=== PATIENT | male | born 1955 | race African-American/Black ===

== ENCOUNTER 2016-07-10 10:49 | Day surgery (SDC) | payer MEDICARE ==
[2016-07-07 08:33] LABS: HEMOGLOBIN 12.7 g/dL (13.6-17.8)
[2016-07-07 08:47] LABS: BUN (BLOOD UREA NITROGEN) 7 MG/DL (6-23); CALCIUM, SERUM 9.3 MG/DL (8.5-10.4); CHLORIDE, SERUM 104 MMOL/L (96-112); CO2 (CARBON DIOXIDE) 27 MMOL/L (24-34); CREATININE 0.72 MG/DL (0.70-1.30); GFR AFRICAN AMERICAN 117 ML/MIN (>=60); GFR NON AFRICAN AMERICAN 101 ML/MIN (>=60); GLUCOSE, SERUM 92 MG/DL (60-99); POTASSIUM, SERUM 3.9 MMOL/L (3.5-5.3); SODIUM, SERUM 140 MMOL/L (135-148)
--- NOTE | ~2016-07-10 | OP ---
Record Of Operation [facility] [address] [place]. [address] NAME: JUNIE MARTIN : 53 STATUS : REG [facility] [place]#: [id number] AGE: 60 ADM/REG DATE : 07/10/16 MR#: [id number] REPORT SERV DATE: 07/10/16 DICTATED BY: LAILA DAVIS DATE: 07/10/16 REPORT STATUS : Draft TRANSCRIBED BY: GAYLA DATE: 07/10/16 DATE OF PROCEDURE: 07/10/2016 PREOPERATIVE DIAGNOSES: Left partial thickness subscapularis tear, rotator cuff tendinosis, labral tearing and impingement. POSTOPERATIVE DIAGNOSES: Left partial thickness subscapularis tear, rotator cuff tendinosis, labral tearing and impingement. PROCEDURES: Left shoulder arthroscopy, subacromial decompression, rotator cuff debridement, and labral debridement. SURGEON: Laila Davis M.D. ANESTHESIA: General with regional block for postop pain control. COMPLICATIONS: None. ESTIMATED BLOOD LOSS: Minimal. INDICATIONS: Mr. Martin is a 60-year-old gentleman followed in my office with the above diagnosis given failure of conservative measures including therapy and injections and medications. He wished to proceed with surgery. Risks and benefits were discussed. DESCRIPTION OF PROCEDURE: The patient was identified in the preoperative area. Informed consent was performed and documented. Surgical site was signed. He was given a regional block per Anesthesia for postop pain control. Taken back to the operative suite, placed on table in supine position. General anesthesia was administered. Attention was turned to his left upper extremity, it was prepped draped in a normal sterile fashion. A time-out was performed and documented. Antibiotics were given at room time. Marked out the bone and landmarks. Insufflated the glenohumeral joint using normal saline. Then made a standard posterior portal 2 cm medial, 2 cm inferior to the posterolateral border of the acromion. Inserted the blunt trocar over the arthroscope, medially established a working portal in the front using the outside in technique. On inspection, the humeral head was essentially benign. There were some mild cartilaginous defects in the glenoid inferiorly. There was degenerative anterior, superior, and posterior labral tearing. This was debrided. Minimal tenderness about the biceps which was likewise debrided. Synovitis superiorly, which was debrided. The biceps and biceps anchor were stable. There was a partial thickness insertional tear in the subscapularis which was debrided back to healthy tissue. Had good integrity. No loose bodies inferiorly. The articular surface of the rotator cuff was benign. Biceps exit was benign. Repositioned the subacromial space, established a lateral working portal, performed a bursectomy, identified the anterior and lateral aspects of the acromion. Used a hi to perform acromioplasty about the anterior lip and then identified and isolated projections to downward at the AC joint. These were likewise debrided as well as the distal clavicle coplaning. Obtained the final images. Removed the instruments and closed the portals. Placed a sterile dressing and a simple sling. The patient tolerated Record Of Operation [place] [place] [id number] [facility] [place]. [address] NAME: JUNIE MARTIN : 53 STATUS : REG [facility] PAT#: [id number] AGE: 60 ADM/REG DATE : 07/10/16 MR#: [id number] REPORT SERV DATE: 07/10/16 DICTATED BY: LAILA DAVIS DATE: 07/10/16 REPORT STATUS : Draft TRANSCRIBED BY: GAYLA DATE: 07/10/16 the procedure well, was taken to the recovery in stable condition. DISCHARGE CONDITION: Satisfactory. DISCHARGE INSTRUCTIONS: The patient was given narcotic analgesics for pain, pertinent instruction for care of dressing, and details regarding his followup appointment. We will see him back in 10 to 14 days, at which time, we will remove the sutures, work on the range of motion. Monitor his progress. WILFRED/GAYLA Laila Davis M.D. / [id number] CC: Aracelis Pryor M.D.
[~2016-07-10 10:49] MED LIST: ACET500CAP PO; ADVIL PO; C5; CELEBREX2 PO; FLEX PO; MOBIC15 MG PO; NORCO1 TAB PO; NORV5 PO; PCET PO
[2016-12-19] MEDS ORDERED: NORV10 PO (23:21)
[2016-12-19] MEDS ORDERED: TYLENOL PM PO (23:22)
[2016-12-19] MEDS ORDERED: NORCO1 TAB PO (23:22)
== END 2016-07-10 20:37 | disposition home or self-care (01) ==
LOC: SDC 10:49
PROVIDERS: Surgery Surgery of the Hand
PROC: 0LB24ZZ Excision of Left Shoulder Tendon, Percutaneous Endoscopic Approach (ICD-10-PCS; principal; 2016-07-10 12:45)
PROC: 0RNK4ZZ Release Left Shoulder Joint, Percutaneous Endoscopic Approach (ICD-10-PCS; 2016-07-10 12:45)
DX: M75.112 Incomplete rotator cuff tear or rupture of left shoulder, not specified as traumatic (principal); M25.812 Other specified joint disorders, left shoulder; I10 Essential (primary) hypertension; F32.9 Major depressive disorder, single episode, unspecified; Z88.8 Allergy status to other drugs, medicaments and biological substances; Z87.891 Personal history of nicotine dependence; Z98.890 Other specified postprocedural states
CPT/HCPCS: 80048; 85014; 85018; 93005; J0690; J1170; J2250; J2370; J2405; J2710; J2795; J3010

== ENCOUNTER 2016-07-24 13:45 | Emergency (ER) | payer MEDICARE ==
[2016-12-19] MEDS ORDERED: NORV10 PO (23:21)
[2016-12-19] MEDS ORDERED: TYLENOL PM PO (23:22)
[2016-12-19] MEDS ORDERED: NORCO1 TAB PO (23:22)
== END 2016-07-24 18:30 | disposition short-term general hospital (02) ==
LOC: ER 13:45
DX: M50.221 Other cervical disc displacement at C4-C5 level (principal); M50.21 Other cervical disc displacement, high cervical region; M25.80 Other specified joint disorders, unspecified joint; I10 Essential (primary) hypertension; Z55.2 Failed school examinations; Z88.5 Allergy status to narcotic agent; Z88.8 Allergy status to other drugs, medicaments and biological substances; Z79.899 Other long term (current) drug therapy
CPT/HCPCS: 72141; 93005; 96374; 96375; 99285; J1170; J2405; J3360